=== PATIENT | female | born 1990 | race Caucasian/White ===

== ENCOUNTER 2019-08-12 19:29 | Emergency (ER) | payer SELFPAY ==
[~2019-08-12] VITALS: Ht 165.1 cm; Wt 75.0 kg
[2019-08-12 19:30] VITALS: Ht 165.1 cm; Wt 75.0 kg
[2019-08-12] MEDS ORDERED: SOD CHLORIDE 0.9% 1,000 ML IV STA (19:38)
[2019-08-12] MEDS ORDERED: DIPHTH/TET/ACEL PERTUSS (ADULT) 0.5 ML VIAL IM* ONE (20:00)
[2019-08-12] MEDS ORDERED: CEFAZOLIN 1 GM/50 ML (PMX) 50 ML IVPB ONE (20:00)
[2019-08-12] MEDS ORDERED: IOHEXOL 300MG/ML 150 ML BTL ONE (20:42)
[2019-08-12] MEDS ORDERED: SOD CHLORIDE 0.9% 100 ML ONE (20:42)
[2019-08-12 21:22] VITALS: BP 111/59; PULSE 81; RESP 19
== END 2019-08-12 21:22 | disposition short-term general hospital (02) ==
LOC: EEVIPCON 19:29 → E/R 19:29
DX: S21.112A Laceration without foreign body of left front wall of thorax without penetration into thoracic cavity, initial encounter (principal); S41.112A Laceration without foreign body of left upper arm, initial encounter; S81.812A Laceration without foreign body, left lower leg, initial encounter; S31.112A Laceration without foreign body of abdominal wall, epigastric region without penetration into peritoneal cavity, initial encounter; R10.2 Pelvic and perineal pain; X99.9XXA Assault by unspecified sharp object, initial encounter; Z23 Encounter for immunization
CPT/HCPCS: 36415; 70450; 71045; 71260; 74177; 80048; 81025; 85025; 85610; 85730; 90471; 90715; 96374; 99285; J0690; J7030; Q9967